=== PATIENT | male | born 1985 | race Hispanic/Latino ===

== ENCOUNTER 2017-01-14 05:28 | Emergency (ER) | payer SELFPAY ==
[2017-01-14] MEDS ORDERED: Azithromycin 250 MG TAB ONE ×2 (06:17)
[2017-01-14] MEDS ORDERED: Ibuprofen 200 MG TAB ONE (06:17)
== END 2017-01-14 06:20 | disposition home or self-care (01) ==
LOC: BURERS 05:28
DX: J03.90 Acute tonsillitis, unspecified (principal); F17.210 Nicotine dependence, cigarettes, uncomplicated
CPT/HCPCS: 99282